=== PATIENT | female | born 1945 | race Caucasian/White ===

== ENCOUNTER → 2016-08-07 | Outpatient (CLI) | payer MEDICARE ==
[2016-08-07 09:42] LABS: AUTOMATED NEUTROPHIL # 2.9 TH/MM3 (1.8-7.7); BASOPHIL # 0.1 TH/MM3 (0-0.2); BASOPHIL % 1.6 % (0.0-2.0); EOSINOPHIL # 0.8 TH/MM3 (0-0.4); EOSINOPHIL % 12.6 % (0.0-4.0); HEMATOCRIT 34.3 % (35.0-46.0); HEMO FLAGS DIFF FINAL; LYMPH % 29.3 % (9.0-44.0); LYMPHOCYTE # 1.8 TH/MM3 (1.0-4.8); MEAN CELL VOLUME 81.3 FL (80.0-100.0); MEAN CORPUSCULAR HEMOGLOBIN 26.8 PG (27.0-34.0); MONO % 8.9 % (0.0-8.0); NEUT % 47.6 % (16.0-70.0); PLATELET COUNT 263 TH/MM3 (150-450); RED BLOOD COUNT 4.22 MIL/MM3 (4.00-5.30); RED CELL DISTRIBUTION WIDTH 14.3 % (11.6-17.2); WHITE BLOOD COUNT 6.1 TH/MM3 (4.0-11.0)
[2016-08-07 10:07] LABS: BLOOD UREA NITROGEN 17 MG/DL (7-18)
[2016-08-07 10:08] LABS: ALKALINE PHOSPHATASE 93 U/L (45-117); ALT (GPT) 26 U/L (10-53); ANION GAP 8 MEQ/L (5-15); AST (GOT) 17 U/L (15-37); BICARBONATE 26.5 MEQ/L (21.0-32.0); CHLORIDE 108 MEQ/L (98-107); GLOMERULAR FILTRATION RATE 58 ML/MIN (>89); GLUCOSE,FASTING 88 MG/DL (74-99); HDL CHOLESTEROL 80.7 MG/DL (40.0-60.0); LDL CHOLESTEROL 39 MG/DL (0-99); POTASSIUM 3.9 MEQ/L (3.5-5.1); SODIUM (NA) 142 MEQ/L (136-145); TOTAL BILIRUBIN ADULT 0.4 MG/DL (0.2-1.0)
[2016-08-07 10:20] LABS: CREATINE KINASE 83 U/L (26-192)
== END ==
LOC: PLAB 07:20
PROVIDERS: ATTEND Family Medicine
DX: M17.12 Unilateral primary osteoarthritis, left knee (principal); E78.5 Hyperlipidemia, unspecified; R07.89 Other chest pain; Z87.898 Personal history of other specified conditions
CPT/HCPCS: 36415; 80053; 80061; 82550; 84443; 84484; 85025

== ENCOUNTER → 2016-09-29 | Outpatient (CLI) | payer MEDICARE ==
[2016-10-01 13:51] LABS: STRIATED MUCLE AB TITER ND (<1:40)
[2016-10-01 19:53] LABS: ACETYLCHOLINE REC BINDING LESS THAN 0.30 nmol/L (())
== END ==
LOC: PLAB 08:40
PROVIDERS: ATTEND Family Medicine
DX: H02.409 Unspecified ptosis of unspecified eyelid (principal)
CPT/HCPCS: 36415; 83519; 86255

== ENCOUNTER → 2017-05-14 | Outpatient (CLI) | payer MEDICARE ==
[2017-05-14 11:53] LABS: BASOPHIL # 0.1 TH/MM3 (0-0.2); EOSINOPHIL # 0.4 TH/MM3 (0-0.4); HEMATOCRIT 34.4 % (35.0-46.0); HEMOGLOBIN 11.6 GM/DL (11.6-15.3); LYMPH % 27.8 % (9.0-44.0); LYMPHOCYTE # 1.5 TH/MM3 (1.0-4.8); MEAN CELL VOLUME 82.9 FL (80.0-100.0); MEAN CORPUSCULAR HEMOGLOBIN 27.9 PG (27.0-34.0); MEAN CORPUSCULAR HGB CONC 33.6 % (32.0-36.0); MEAN PLATELET VOLUME 8.1 FL (7.0-11.0); MONO % 8.5 % (0.0-8.0); MONOCYTE # 0.5 TH/MM3 (0-0.9); NEUT % 55.7 % (16.0-70.0); PLATELET COUNT 291 TH/MM3 (150-450); RED BLOOD COUNT 4.14 MIL/MM3 (4.00-5.30); RED CELL DISTRIBUTION WIDTH 15.1 % (11.6-17.2); WHITE BLOOD COUNT 5.5 TH/MM3 (4.0-11.0)
[2017-05-14 12:11] LABS: ALBUMIN 3.5 GM/DL (3.4-5.0); AST (GOT) 16 U/L (15-37); BICARBONATE 25.6 MEQ/L (21.0-32.0); BLOOD UREA NITROGEN 18 MG/DL (7-18); CALCIUM 8.9 MG/DL (8.5-10.1); CHLORIDE 107 MEQ/L (98-107); CHOLESTEROL 237 MG/DL (120-200); CREATININE 0.75 MG/DL (0.50-1.00); GLOMERULAR FILTRATION RATE 76 ML/MIN (>89); GLUCOSE,FASTING 83 MG/DL (74-99); SODIUM (NA) 141 MEQ/L (136-145); TRIGLYCERIDES 83 MG/DL (42-150)
[2017-05-14 12:23] LABS: ALKALINE PHOSPHATASE 83 U/L (45-117); ALT (GPT) 22 U/L (10-53); CHOLESTEROL/ HDL RATIO 3.25 RATIO; FREE T4 1.27 NG/DL (0.76-1.46); HDL CHOLESTEROL 72.7 MG/DL (40.0-60.0); LDL CHOLESTEROL 148 MG/DL (0-99); TOTAL BILIRUBIN ADULT 0.4 MG/DL (0.2-1.0); TOTAL PROTEIN 7.2 GM/DL (6.4-8.2)
== END ==
LOC: PLAB 09:09
PROVIDERS: ATTEND Family Medicine
DX: E78.5 Hyperlipidemia, unspecified (principal); E55.9 Vitamin D deficiency, unspecified; E03.9 Hypothyroidism, unspecified
CPT/HCPCS: 36415; 80053; 80061; 82306; 82550; 84439; 84443; 85025

== ENCOUNTER → 2017-11-03 | Outpatient (CLI) | payer MEDICARE ==
[2017-11-03 10:05] LABS: ALBUMIN 3.6 GM/DL (3.4-5.0); AST (GOT) 21 U/L (15-37); BICARBONATE 25.4 MEQ/L (21.0-32.0); BLOOD UREA NITROGEN 14 MG/DL (7-18); CALCIUM 8.7 MG/DL (8.5-10.1); CHLORIDE 107 MEQ/L (98-107); CREATININE 0.94 MG/DL (0.50-1.00); GLOMERULAR FILTRATION RATE 58 ML/MIN (>89); GLUCOSE,FASTING 83 MG/DL (74-99); SODIUM (NA) 141 MEQ/L (136-145)
[2017-11-03 10:06] LABS: CHOLESTEROL 142 MG/DL (120-200); TRIGLYCERIDES 78 MG/DL (42-150)
[2017-11-03 10:15] LABS: ALKALINE PHOSPHATASE 97 U/L (45-117); ALT (GPT) 24 U/L (10-53); CHOLESTEROL/ HDL RATIO 1.94 RATIO; FREE T4 1.16 NG/DL (0.76-1.46); HDL CHOLESTEROL 73.1 MG/DL (40.0-60.0); LDL CHOLESTEROL 53 MG/DL (0-99); TOTAL BILIRUBIN ADULT 0.4 MG/DL (0.2-1.0); TOTAL PROTEIN 6.9 GM/DL (6.4-8.2)
== END ==
LOC: PLAB 08:06
PROVIDERS: ATTEND Family Medicine
DX: E78.5 Hyperlipidemia, unspecified (principal); E55.9 Vitamin D deficiency, unspecified; E03.9 Hypothyroidism, unspecified
CPT/HCPCS: 36415; 80053; 80061; 82306; 84439; 84443